=== PATIENT | female | born 1980 | race Caucasian/White ===

== ENCOUNTER 2017-06-07 12:04 | Emergency (ER) | payer MEDICAID ==
[~2017-06-07] VITALS: Ht 154.9 cm; Wt 79.3 kg
[2017-06-07 12:07] VITALS: BP 165/91; PULSE 93; RESP 16; TEMP 99.3; O2SAT 98
--- NOTE | 2017-06-07 12:57 | PD ---
HPI Chief Complaint: Lump, Cyst, Hernia Time Seen by Provider: 12:52 Travel History International Travel<30 days: No Contact w/Intl Traveler<30days: No Traveled to known affect area: No History of Present Illness HPI 36 YO F presents to the ED for evaluation of "a few months history" of 7/10 left foot pain. Described as constant. 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 The area of pain is just proximal to the MP joint of the left great toe. Patient can identify no acute injury. She denies numbness, tingling, weakness, limitations to range of motion of the extremity. No treatment attempted at home. PFSH Past Medical History Cancer: No Cardiovascular Problems: No Diminished Hearing: No Endocrine: No Genitourinary: Yes Immune Disorder: No Kidney Stones: Yes Musculoskeletal: No Neurologic: Yes Psychiatric: No Reproductive: No Respiratory: No Migraines: Yes ?: Not : 3 Para: 2 Tubal Ligation: Yes Past Surgical History Section: Yes Gynecologic Surgery: Yes (02 TUBAL LIGATION, C SECTION) Other Surgery: Yes (GANGLION CYTS-RIGHT WRIST) Social History Alcohol Use: Yes (occasionally) Tobacco Use: Yes (1/3 ppd) Substance Use: No Allergies-Medications (Allergen,Severity, Reaction): Coded Allergies: melon (Unverified Allergy, Mild, Hives, 06/07/17) peanut (Unverified Allergy, Mild, Itching, 06/07/17) Reported Meds & Prescriptions Reported Meds & Active Scripts Active Naprosyn (Naproxen) 500 Mg Tab 500 Mg PO BID Review of Systems Except as stated in HPI: all other systems reviewed are Neg Physical Exam Narrative GENERAL: Well-nourished, well-developed white female in no acute distress. SKIN: Focused skin assessment warm/dry. HEAD: Normocephalic. EYES: No scleral icterus. No injection or drainage. NECK: Supple, trachea midline. No JVD or lymphadenopathy. CARDIOVASCULAR: Regular rate and rhythm without murmurs, gallops, or rubs. RESPIRATORY: Breath sounds equal bilaterally. No accessory muscle use. GASTROINTESTINAL: Abdomen soft, non-tender, nondistended. MUSCULOSKELETAL: No cyanosis, or edema. FOCUSED LEFT LOWER EXTREMITY EXAM: 2+ DP pulse. Mild edema and tenderness to palpation just proximal to the MP joint of the great toe. Patient retains full , active, painless ROM of the digits of the foot and ankle. Cap refill less than 2 seconds. Sensation intact to light touch distally. BACK: Nontender without obvious deformity. No CVA tenderness. Data Data Last Documented VS Vital Signs Date Time Temp Pulse Resp B/P (MAP) Pulse Ox O2 Delivery O2 Flow Rate FiO2 06/07/17 12:07 99.3 93 16 165/91 (115) 98 Orders Orders Ice/Cold Pack (06/07/17 12:57) Ibuprofen (Motrin) (06/07/17 13:00) Foot, Complete ([id number]) (06/07/17 12:57) Ed Discharge Order (06/07/17 13:40) [facility] Medical Decision Making Medical Screen Exam Complete: Yes Emergency Medical Condition: Yes Differential Diagnosis Musculoskeletal pain versus gout versus contusion versus tendinitis versus other Narrative Course 36 YO F presents to the ED for evaluation of "a few months history" of 03/05 left foot pain. Described as constant. 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 The area of pain is just proximal to the MP joint of the left great toe. Patient can identify no acute injury. She denies numbness, tingling, weakness, limitations to range of motion of the extremity. Vitals reviewed. On physical exam the patient does have tenderness to palpation just proximal to the MP joint of the dorsal aspect of the left foot. No limitations to range of motion. Neurovascularly intact. Ice pack was applied. Patient was administered a dose of ibuprofen. X-ray reveals arthritic changes and bone spur of the area. The patient is prescribed a course of anti-inflammatory medications, instructed to rest, ice, elevate the extremity, follow up with the award clerk should symptoms persist. She indicated understanding of instructions and is agreeable to the care plan. She is stable and discharged home. Diagnosis Primary Impression: Bone spur of toe of left foot Referrals: Nick Hernandez DPM Additional Instructions: Rest, ice, elevate the extremity. Apply ice no longer than 10-15 minutes per hour a few times a day. Naprosyn twice a day for 10 days to reduce pain and inflammation. Return to normal, gentle activity as tolerated. Compression socks while working and standing for long hours may also help to reduce symptoms. No running, jumping activities for the next few weeks. Follow up with the award clerk as discussed. Return to the ED for any urgent or emergent medical condition. Med/Other Pt SpecificInfo: Prescription(s) given Scripts Naproxen (Naprosyn) 500 Mg Tab 500 MG PO BID, #60 TAB 0 Refills Prov: Vahid Bright MD 06/07/17 Disposition: 01 DISCHARGE HOME Condition: Stable Laura Finney Jun 07, 2017 12:57
[2017-06-07] MEDS ORDERED: IBUPROFEN 600 MG TAB PO ONE (13:00)
--- NOTE | 2017-06-07 13:36 | RADRPT ---
EXAM DATE/TIME: 06/07/2017 13:09 [place] COMPARISON: No previous studies available for comparison. INDICATIONS : No known injury. Pain started three months ago with pain increasing since last in left great toe. MEDICAL HISTORY : None. SURGICAL HISTORY : None. ENCOUNTER: Initial ACUITY: 1 month PAIN SCORE: 7/10 LOCATION: Left Great toe FINDINGS: There are degenerative changes in the metatarsal phalangeal joint of the first digit. The osseous str uctures are otherwise intact. No acute fracture is seen. CONCLUSION: 1. No acute bony abnormality identified. 2. 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 Nomi Murphy MD on June 07, 2017 at 13:29 Board Certified Radiologist. This report was verified electronically.
[2017-06-07] MEDS ORDERED: NAPR500 PO (13:38)
== END 2017-06-07 14:08 | disposition home or self-care (01) ==
LOC: PHEFT 12:04
DX: M77.8 Other enthesopathies, not elsewhere classified (principal); M19.072 Primary osteoarthritis, left ankle and foot; F17.200 Nicotine dependence, unspecified, uncomplicated; Z87.448 Personal history of other diseases of urinary system; Z86.69 Personal history of other diseases of the nervous system and sense organs
CPT/HCPCS: 73630; 99283